=== PATIENT | female | born 1995 | race Caucasian/White ===

== ENCOUNTER 2016-08-07 14:32 | Observation (INO) ==
[2016-08-07] MEDS ORDERED: *HR* HYDROcodone/Acet 5/325 mg TABLET PO ONE (16:54)
[2016-08-07 17:48] LABS: Alanine Aminotransferase 9 Units/L (0-55); Albumin 3.2 g/dL (3.5-5.0); Albumin/Globulin Ratio 0.9 (1.1-2.2); Alkaline Phosphatase 62 Units/L (38-126); Aspartate Amino Transferase 12 Units/L (5-34); BUN/Creatinine Ratio 27 (6-26); Bilirubin,Direct 0.1 mg/dL (0.0-0.5); Bilirubin,Indirect 0.1 mg/dL (0.0-1.2); Bilirubin,Total 0.2 mg/dL (0.2-1.2); Blood Urea Nitrogen 17 mg/dL (7-20); Calcium 8.7 mg/dL (8.6-10.8); Carbon Dioxide 21 mEq/L (19-29); Chloride 110 mEq/L (98-109); Globulin 3.7 g/dL (2.4-3.5); Glucose 79 mg/dL (70-99); Osmolality,Calculated 284 (280-300); Potassium 4.1 mEq/L (3.5-4.5); Sodium 137 mEq/L (136-145); Total Protein 6.9 g/dL (6.0-8.3); eGFR For African Americans > 60 (> 60); eGFR For Non-African Americans > 60 (> 60)
[2016-08-07 17:50] LABS: Bilirubin,Urine Small (Negative); Blood,Urine Negative (Negative); Clarity,Urine Cloudy (Clear); Color,Urine Yellow (Yellow); Glucose,Urine (UA) Normal (Normal); Ketones,Urine Trace mg/dL (Negative); Leukocyte Esterase,Urine Small (Negative); Nitrite,Urine Positive (Negative); Protein,Urine Trace mg/dL (Neg-Trace); Specific Gravity,Urine > 1.030 (1.010-1.025); Urobilinogen,Urine Normal (Normal)
[2016-08-07 17:55] LABS: Bacteria,Urine Many per hpf (None-Few); Hyaline Casts,Urine Moderate per lpf (None-Few); RBC,Urine 0-3 per hpf (0-3); Squamous Epithelial Cell,Urine Many per lpf (None-Few); WBC,Urine 50-100 per hpf (0-3)
[2016-08-07 18:17] LABS: Basophils # 0.1 K/mcL (0.0-0.2); Basophils % 0.7 %; Eosinophils # 0.1 K/mcL (0.0-0.6); Hematocrit 25.3 % (35.3-44.9); Hemoglobin 7.8 g/dL (11.5-15.4); Immature Granulocytes % 0.3 % (0-4); Lymphocytes # 1.9 K/mcL (0.6-4.6); Lymphocytes % 20.2 %; Mean Corpuscular HGB Conc 30.8 g/dL (31.6-35.5); Mean Corpuscular Hemoglobin 26.6 pg (28.0-33.3); Mean Corpuscular Volume 86.3 fL (83.0-100.0); Mean Platelet Volume 9.9 fL (9.4-12.4); Monocytes # 0.8 K/mcL (0.0-1.3); Monocytes % 8.6 %; Neutrophils # 6.3 K/mcL (1.6-8.9); Platelet Count 364 K/mcL (140-400); Red Blood Count 2.93 M/mcL (3.82-4.97); Red Cell Distribution Width 12.6 % (11.5-14.5); Segmented Neutrophils % 69.2 %
--- NOTE | 2016-08-07 21:10 | Emergency Department Note ---
Disposition Clinical Impression: Vaginal bleeding Disposition: Admitted As Inpatient Condition: Good Referrals: NO,PCP [Primary Care Provider] - Forms: ED Satisfaction Letter Female Urogenital HPI - General Chief complaint: ED Vaginal Bleeding Stated complaint: ABD PAIN Time Seen by Provider: 08/07/16 16:41 Source: patient Limitations: no limitations Nursing Notes Reviewed: Yes Vital Signs Reviewed: Yes - History of Present Illness HPI Narrative: This is a 21-year-old female presents with concern for abdominal pain, vaginal bleeding. She has a 2-year-old child who she is still breast-feeding. She follows with Dr. Saenz and [employer]. Per history she call the office today was sent in here given the fact that she is having ongoing suprapubic pain. She has not utilized any pads today. Her vaginal bleeding has been somewhat chronic over the past couple of weeks. She had an ultrasound on this week and the [employer]'s office that showed no acute findings. I did repeat the ultrasound today which again shows no acute findings. She is not . She does admit to having low hemoglobin in the past with normal MCV. There is concern about vaginal bleeding as a cause of this. Dr. Saenz was contacted and requested the patient be admitted to Dr. Bedoya the on-call [employer]. - Related Data Home Medications Medication Instructions Recorded Confirmed FLUoxetine HCl [PROzac] 30 mg PO DAILY 08/07/16 08/07/16 Previous Rx's Medication Instructions Recorded #103/Iron Fumarate/FA 1 each PO DAILY #90 tablet 07/19/16 [ Tablet] Allergies Allergy/AdvReac Type Severity Reaction Status Date / Time No Known Allergies Allergy Verified 08/07/16 14:33 Limitations: ROS unobtainable due to patients medical condition Past Medical History - Past Medical History Medical history: Reports: no medical history Surgical history: Reports: no surgical history Psychiatric history: Reports: depression [employer] history: Reports: dysfunctional uterine bleed - Social History Smoking Status: Never smoker Smokeless Tobacco Status: No Alcohol use: Reports: none Drug use: Reports: none Physical Exam HEENT: Pupils PERRL, reactive, extraocular muscle movements normal, mucous murmurs moist Trachea is midline Cardiovascular: Regular rate and rhythm, no murmur rub or gallop Pulmonary: No rales, rhonchi, wheezing no tachypnea Abdomen :Mild suprapubic tenderness on examination however non-peritoneal Extremities: No clubbing cyanosis or edema. Neurologic: Cranial nerves II through XII grossly intact - General Limitations: no limitations General appearance: alert, in no apparent distress - Eye Eye exam: Present: normal appearance - ENT ENT exam: normal exam - Neck Neck exam: Present: normal inspection - Chest Chest inspection: Present: normal inspection - Respiratory Respiratory exam: Present: normal lung sounds bilaterally - Cardiovascular Cardiovascular exam: Present: regular rate, normal rhythm Course Vital Signs Temperature 98.5 F 08/07/16 14:33 Pulse Rate 92 08/07/16 14:33 Respiratory Rate 18 08/07/16 14:33 Blood Pressure 92/61 08/07/16 14:33 O2 Sat by Pulse Oximetry 99 08/07/16 14:33 Temperature 98.5 F 08/07/16 14:33 Pulse Rate 88 08/07/16 20:16 Respiratory Rate 14 08/07/16 20:16 Blood Pressure 106/64 08/07/16 20:16 O2 Sat by Pulse Oximetry 100 08/07/16 20:16 Oxygen Delivery Oxygen Delivery Room Air Urogenital-Female - MDM Narrative Medical decision making narrative: Mild suprapubic tenderness in the setting of anemia and ongoing concern for vaginal bleeding. Ultrasound does not demonstrate a thickened endometrium or other acute abnormalities to suggest a root cause of her bleeding. I did discuss with her [employer] who sent her into the hospital and he suggested her be admitted for blood transfusion, monitoring of bleeding, treatment of urinary tract infection. There is no indication for me to transfuse at this time as her hemoglobin is above 7. Her vital signs are stable. She has no ongoing hemorrhage. Transfusion is at the discretion of the admitting provider. I did add on a type and screen at the request of the admitting provider, ceftriaxone was initiated to treat her urinary tract infection. She is nontoxic appearing. Plan to admit for anemia in the setting of vaginal bleeding. No bleeding actively. Dr. Bedoya is accepting admission. - Lab Data Result diagrams: 08/07/16 17:22 08/07/16 17:22 Lab Results 08/07/16 08/07/16 08/07/16 Range/Units 17:22 17:22 17:22 WBC 9.1 (4.3-11.1) K/mcL RBC 2.93 L (3.82-4.97) M/mcL Hgb 7.8 L (11.5-15.4) g/dL Hct 25.3 L (35.3-44.9) % MCV 86.3 (83.0-100.0) fL MCH 26.6 L (28.0-33.3) pg MCHC 30.8 L (31.6-35.5) g/dL RDW 12.6 (11.5-14.5) % Plt Count 364 (140-400) K/mcL MPV 9.9 (9.4-12.4) fL Immature Gran % 0.3 (0-4) % Seg Neutrophils % 69.2 % Lymphocytes % 20.2 % Monocytes % 8.6 % Eosinophils % 1.0 % Basophils % 0.7 % Neutrophils # 6.3 (1.6-8.9) K/mcL Lymphocytes # 1.9 (0.6-4.6) K/mcL Monocytes # 0.8 (0.0-1.3) K/mcL Eosinophils # 0.1 (0.0-0.6) K/mcL Basophils # 0.1 (0.0-0.2) K/mcL Sodium 137 (136-145) mEq/L Potassium 4.1 (3.5-4.5) mEq/L Chloride 110 H (98-109) mEq/L Carbon Dioxide 21 (19-29) mEq/L BUN 17 (7-20) mg/dL Creatinine 0.62 (0.57-1.11) mg/dL Est GFR ( Amer) > 60 (> 60) Est GFR (Non-Af Amer) > 60 (> 60) BUN/Creatinine Ratio 27 H (6-26) Glucose 79 (70-99) mg/dL Calculated Osmolality 284 (280-300) Calcium 8.7 (8.6-10.8) mg/dL Total Bilirubin 0.2 (0.2-1.2) mg/dL Direct Bilirubin 0.1 (0.0-0.5) mg/dL Indirect Bilirubin 0.1 (0.0-1.2) mg/dL AST 12 (5-34) Units/L ALT 9 (0-55) Units/L Alkaline Phosphatase 62 (38-126) Units/L Serum Total Protein 6.9 (6.0-8.3) g/dL Albumin 3.2 L (3.5-5.0) g/dL Globulin 3.7 H (2.4-3.5) g/dL Albumin/Globulin Ratio 0.9 L (1.1-2.2) Serum , Qual Negative (Negative) Urine Color (Yellow) Urine Clarity (Clear) Urine pH (5.0-8.0) pH Units Ur Specific [place] (1.010-1.025) Urine Protein (Neg-Trace) mg/dL Urine Glucose (UA) (Normal) mg/dL Urine Ketones (Negative) mg/dL Urine Blood (Negative) Urine Nitrite (Negative) Urine Bilirubin (Negative) Urine Urobilinogen (Normal) mg/dL Ur Leukocyte Esterase (Negative) Urine Microscopic RBC (0-3) per hpf Urine Microscopic WBC (0-3) per hpf Ur Squamous Epith Cells (None-Few) per lpf Urine Bacteria (None-Few) per hpf Hyaline Casts (None-Few) per lpf Ur Culture Indicated? (NO) 08/07/16 Range/Units 17:38 WBC (4.3-11.1) K/mcL RBC (3.82-4.97) M/mcL Hgb (11.5-15.4) g/dL Hct (35.3-44.9) % MCV (83.0-100.0) fL MCH (28.0-33.3) pg MCHC (31.6-35.5) g/dL RDW (11.5-14.5) % Plt Count (140-400) K/mcL MPV (9.4-12.4) fL Immature Gran % (0-4) % Seg Neutrophils % % Lymphocytes % % Monocytes % % Eosinophils % % Basophils % % Neutrophils # (1.6-8.9) K/mcL Lymphocytes # (0.6-4.6) K/mcL Monocytes # (0.0-1.3) K/mcL Eosinophils # (0.0-0.6) K/mcL Basophils # (0.0-0.2) K/mcL Sodium (136-145) mEq/L Potassium (3.5-4.5) mEq/L Chloride (98-109) mEq/L Carbon Dioxide (19-29) mEq/L BUN (7-20) mg/dL Creatinine (0.57-1.11) mg/dL Est GFR ( Amer) (> 60) Est GFR (Non-Af Amer) (> 60) BUN/Creatinine Ratio (6-26) Glucose (70-99) mg/dL Calculated Osmolality (280-300) Calcium (8.6-10.8) mg/dL Total Bilirubin (0.2-1.2) mg/dL Direct Bilirubin (0.0-0.5) mg/dL Indirect Bilirubin (0.0-1.2) mg/dL AST (5-34) Units/L ALT (0-55) Units/L Alkaline Phosphatase (38-126) Units/L Serum Total Protein (6.0-8.3) g/dL Albumin (3.5-5.0) g/dL Globulin (2.4-3.5) g/dL Albumin/Globulin Ratio (1.1-2.2) Serum , Qual (Negative) Urine Color Yellow (Yellow) Urine Clarity Cloudy A (Clear) Urine pH 6.0 (5.0-8.0) pH Units Ur Specific [place] > 1.030 H (1.010-1.025) Urine Protein Trace (Neg-Trace) mg/dL Urine Glucose (UA) Normal (Normal) mg/dL Urine Ketones Trace H (Negative) mg/dL Urine Blood Negative (Negative) Urine Nitrite Positive A (Negative) Urine Bilirubin Small H (Negative) Urine Urobilinogen Normal (Normal) mg/dL Ur Leukocyte Esterase Small H (Negative) Urine Microscopic RBC 0-3 (0-3) per hpf Urine Microscopic WBC 50-100 H (0-3) per hpf Ur Squamous Epith Cells Many H (None-Few) per lpf Urine Bacteria Many H (None-Few) per hpf Hyaline Casts Moderate H (None-Few) per lpf Ur Culture Indicated? YES A (NO)
--- NOTE | 2016-08-07 22:48 | OB/GYN History & Physical ---
Date of Encounter: 08/08/16 Time of Encounter: 22:44 Assessment and Plan (1) Suprapubic pain Current visit: Yes Status: Acute -UTI shows infection. -Abdomen/pelvis/trans vag Ultrasound done in ED on 08/07 shows no abnormalities. -No CVA tenderness, fever, nausea, vomiting. Not concern for pyelonephritis. -patient already received Rocephin in ED. Will discontinue IV abx and start macrobid in the morning Plan -Start macrobid in the morning. -Dicharge and treat as outpatient. (2) Abdominal pain Current visit: Yes Status: Acute -Patient complains of RUQ, RLQ, LLQ and superpubic pain -Pressing with stethoscope doesn't cause pain. Pressing with hand causes significant pain. -Patient did a sit-up in bed, resting hands on stomach, taking on the phone, laughing, eating taco cronin and leaning over the side of the bed to hug her boyfriend. -WBC WNL, no fever, nausea, vomiting. Non surgical abdomen. Doubt gallbladder pathology, appendicitis Plan -No workup needed. -Tylenol 500mg q6h for pain -Dont give NSAID because of anemia. Qualifiers: Abdominal location: unspecified location Qualified Code(s): R10.9 - Unspecified abdominal pain (3) Vaginal bleeding Current visit: Yes Status: Acute -irregular periods for years. On sprintec -Dr. Mccullough is OBGYN -Patient does appear to be very concerned. Plan -Continue to monitor. (4) Anemia Current visit: Yes Status: Acute -patient having minimal vaginal spotting, denies hematochezia. No previous transfusion. -Denies family history of bleeding disorders. She denies easy bruising, or bleeding. -Possibly iron deficiency anemia -Type and screen in ED Plan -Monitor Vitals. -Transfuse 2 PRBC -Consider getting PT/INR, PTT for further evaluation -Redraw H&H in the morning. Qualifiers: Anemia type: unspecified type Qualified Code(s): D64.9 - Anemia, unspecified (5) Menorrhagia with irregular cycle Current visit: Yes Status: Acute History of Present Illness Chief complaint: Superpubic pain and Anemia HPI: Ms. Patiño is a 21 year old female, , admitted for superpubic pain, vaginal spotting, and hemoglobin <8.0. Concerning the superpubic pain:1 week durationg. pain described as burning, constant pain. Nothing makes it worse. Alleviated someone with pain medication. Denies dysuria, hematuria, urgency or frequency, CVA tenderness, fever, nausea and vomiting. Concerning the vaginal spotting: For one week. Less than one pad per day, red blood. She had a worse episode a month ago with clots and was evaluated by Dr. Mccullough, her OBGYN. She stopped bleeding, then started spotting again. She has irregular periods for years. Is on sprintec for the past year. Has a two year girl, vaginal delivery. Grade 4 tear from emergent episiotomy. Anemia: Patient feels a little more tired than usual over the past month. Denies any rectal bleeding, hematochezia, coughing up blood. She just started taking medication for the iron. No previous history of blood transfusion. Later on in the conversation, patient states she is also having RUQ pain. Described as burning and tender to the touch. She is currently sitting up in bed , eating taco cronin, laughing and reaching over the right side of the bed to hug her boyfriend. Agree with above Shahbaz Bedoya Past Med Surg Social Fam HX - Past Medical History Medical history: other (Post depression ) Psychiatric history: depression - Past Surgical History Surgical History: other (D&C in 2011 for miscarrage ) - Social History Smoking Status: Never smoker Smokeless Tobacco Status: No Alcohol use: none Drug use: none Obstetrical History - Pregnancies : 2 Para: 1 Term: 1 : 0 Ab's: 1 Livin - History/Complications History/Complications: Vaginal delivery with Grade 4 tear Medications and Allergies #103/Iron Fumarate/FA [ Tablet] 1 each PO DAILY #90 tablet 07/19/16 [Rx] FLUoxetine HCl [PROzac] 30 mg PO DAILY 08/07/16 [History] Allergies No Known Allergies Allergy (Verified 08/07/16 14:33) Review of System OB - Cardiovascular Cardiovascular: no chest pain - Respiratory Respiratory: no hemoptysis - Gastrointestinal Gastrointestinal: abdominal pain, no change in bowel habits, no change in stool character, no constipation Exam - Vital Signs Vital signs: Initial Vital Signs Temp Pulse Resp BP Pulse Ox 98.5 F 92 18 92/61 99 08/07/16 14:33 08/07/16 14:33 08/07/16 14:33 08/07/16 14:33 08/07/16 14:33 - Constitutional Constitutional: well developed, well nourished, no acute distress, average body habitus - HEENT HEENT: Normocephaly, Mucus Membranes Moist - Lungs Respiratory exam: CTAB - Cardiovascular Cardiovascular exam: RRR, +S1, +S2 - Abdomen Abdomen: Present: bowel sounds normal. Absent: non tender Abdomen detail: right upper quadrant: tenderness (Pressing moderately with stethoscope, no pain. Palpating with hand causes pain.), right lower quadrant: tenderness - Uterus Uterus exam: Present: normal size, normal contour Results Result Diagrams: 08/07/16 17:22 08/07/16 17:22 Abnormal lab results RBC 2.93 M/mcL (3.82-4.97) L 08/07/16 17:22 Hgb 7.8 g/dL (11.5-15.4) L 08/07/16 17:22 Hct 25.3 % (35.3-44.9) L 08/07/16 17:22 MCH 26.6 pg (28.0-33.3) L 08/07/16 17:22 MCHC 30.8 g/dL (31.6-35.5) L 08/07/16 17:22 Chloride 110 mEq/L (98-109) H 08/07/16 17:22 BUN/Creatinine Ratio 27 (6-26) H 08/07/16 17:22 Albumin 3.2 g/dL (3.5-5.0) L 08/07/16 17:22 Globulin 3.7 g/dL (2.4-3.5) H 08/07/16 17:22 Albumin/Globulin Ratio 0.9 (1.1-2.2) L 08/07/16 17:22 Urine Clarity Cloudy (Clear) A 08/07/16 17:38 Ur Specific [place] > 1.030 (1.010-1.025) H 08/07/16 17:38 Urine Ketones Trace mg/dL (Negative) H 08/07/16 17:38 Urine Nitrite Positive (Negative) A 02/24/17 17:38 Urine Bilirubin Small (Negative) H 08/07/16 17:38 Ur Leukocyte Esterase Small (Negative) H 08/07/16 17:38 Urine Microscopic WBC 50-100 per hpf (0-3) H 08/07/16 17:38 Ur Squamous Epith Cells Many per lpf (None-Few) H 08/07/16 17:38 Urine Bacteria Many per hpf (None-Few) H 08/07/16 17:38 Hyaline Casts Moderate per lpf (None-Few) H 08/07/16 17:38 Ur Culture Indicated? YES (NO) A 08/07/16 17:38 All other labs normal. - Attending Attestation Patient seen with the resident and agree with the above
[2016-08-08] MEDS ORDERED: Ondansetron 4 MG/2 ML VIAL IVP SCH
[2016-08-08] MEDS ORDERED: 0.9 % Sodium Chloride Mini Bag 200 ML ONE (01:29)
[2016-08-08] MEDS ORDERED: Ondansetron 4 MG/2 ML VIAL IVP PRN (02:52)
[2016-08-08] MEDS: Ibuprofen 800 MG TABLET PO PRN ×2 (03:54→11:46)
[2016-08-08] MEDS ORDERED: Nitrofurantoin (BID) 100 MG CAPSULE PO SCH (08:00)
[2016-08-08 08:07] VITALS: BP 106/71
[2016-08-08 10:58] LABS: Basophils # 0.1 K/mcL (0.0-0.2); Basophils % 0.6 %; Eosinophils # 0.1 K/mcL (0.0-0.6); Eosinophils % 1.7 %; Hematocrit 30.8 % (35.3-44.9); Immature Granulocytes % 0.5 % (0-4); Lymphocytes # 1.5 K/mcL (0.6-4.6); Lymphocytes % 19.6 %; Mean Corpuscular HGB Conc 32.5 g/dL (31.6-35.5); Mean Corpuscular Hemoglobin 27.2 pg (28.0-33.3); Mean Corpuscular Volume 83.9 fL (83.0-100.0); Mean Platelet Volume 9.3 fL (9.4-12.4); Monocytes # 0.7 K/mcL (0.0-1.3); Monocytes % 9.3 %; Neutrophils # 5.3 K/mcL (1.6-8.9); Platelet Count 318 K/mcL (140-400); Red Blood Count 3.67 M/mcL (3.82-4.97); Red Cell Distribution Width 12.8 % (11.5-14.5); Segmented Neutrophils % 68.3 %
--- NOTE | 2016-08-08 11:16 | OB/GYN Progress Note ---
Date of Encounter: 08/08/16 Time of Encounter: 11:14 - Assessment and Plan (1) Anemia Current Visit: Yes Status: Acute Qualifiers: Anemia type: unspecified type Qualified Code(s): D64.9 - Anemia, unspecified (2) Menorrhagia with irregular cycle Current Visit: Yes Status: Acute (3) UTI (urinary tract infection) Current Visit: Yes Status: Acute Qualifiers: Urinary tract infection type: acute cystitis Hematuria presence: without hematuria Qualified Code(s): N30.00 - Acute cystitis without hematuria Objective - Vital Signs Latest vital signs: Vital Signs Temp Pulse Resp BP Pulse Ox 08/08/16 07:55 16 08/08/16 07:45 98.3 F 98 16 106/71 99 08/08/16 06:56 98.1 F 90 15 99/59 98 08/08/16 04:48 98.2 F 90 16 99/64 99 08/08/16 04:42 98.1 F 80 15 101/66 99 08/08/16 04:22 98.1 F 80 15 101/66 99 08/08/16 02:08 98.3 F 80 16 104/68 99 08/08/16 01:53 98.3 F 99 15 103/66 08/07/16 22:15 98.2 F 79 15 104/69 100 Intake and Output 08/07/16 08/08/16 08/08/16 23:59 07:59 15:59 Intake Total 559 / 559 Output Total 500 / 500 Balance -500 / -400 559 / 559 Intake: Blood Product 559 / 559 Rbcs Leuko Poor As-3 2nd 279 / 279 Unit [id number] Rbcs Leuko Poor As-3 2nd 280 / 280 Unit [id number] Output: Urine 500 / 500 - I&O's I&O's: Intake & Output 08/05/16 08/06/16 08/07/16 08/08/16 23:59 23:59 23:59 23:59 Intake Total 559 / 559 Output Total 500 / 500 Balance -500 / -400 559 / 559 - Labs Labs: Abnormal lab results RBC 3.67 M/mcL (3.82-4.97) L 08/08/16 10:45 Hgb 10.0 g/dL (11.5-15.4) L D 08/08/16 10:45 Hct 30.8 % (35.3-44.9) L 08/08/16 10:45 MCH 27.2 pg (28.0-33.3) L 08/08/16 10:45 MPV 9.3 fL (9.4-12.4) L 08/08/16 10:45 Chloride 110 mEq/L (98-109) H 08/07/16 17:22 BUN/Creatinine Ratio 27 (6-26) H 08/07/16 17:22 Albumin 3.2 g/dL (3.5-5.0) L 08/07/16 17:22 Globulin 3.7 g/dL (2.4-3.5) H 08/07/16 17:22 Albumin/Globulin Ratio 0.9 (1.1-2.2) L 08/07/16 17:22 Urine Clarity Cloudy (Clear) A 08/07/16 17:38 Ur Specific [place] > 1.030 (1.010-1.025) H 08/07/16 17:38 Urine Ketones Trace mg/dL (Negative) H 08/07/16 17:38 Urine Nitrite Positive (Negative) A 08/07/16 17:38 Urine Bilirubin Small (Negative) H 08/07/16 17:38 Ur Leukocyte Esterase Small (Negative) H 08/07/16 17:38 Urine Microscopic WBC 50-100 per hpf (0-3) H 08/07/16 17:38 Ur Squamous Epith Cells Many per lpf (None-Few) H 08/07/16 17:38 Urine Bacteria Many per hpf (None-Few) H 08/07/16 17:38 Hyaline Casts Moderate per lpf (None-Few) H 08/07/16 17:38 Ur Culture Indicated? YES (NO) A 08/07/16 17:38 Consult Discharge Plan - Plan Additional Instructions: Call office this week for possible earlier appointment with Dr. Mccullough Referrals: Geri Mccullough MD [Partnered Physician] - Prescriptions: Nitrofurantoin (BID) [Macrobid] 100 mg PO BIDWM #14 capsule
== END 2016-08-08 13:05 | disposition home or self-care (01) ==
LOC: 1NENUOBS 14:32 → EMEROO 14:32 → 1NENUOBS 20:44
PROVIDERS: ADMIT Obstetrics & Gynecology; ATTEND Obstetrics & Gynecology